=== PATIENT | male | born 1985 | race African-American/Black ===

== ENCOUNTER 2022-04-14 22:08 | Emergency (ER) | payer OTHER ==
[2022-04-14 22:13] VITALS: BP 138/71; PULSE 83; RESP 19; TEMP 98.6; BMI 26.7
[2022-04-14] MEDS ORDERED: DIPHTH,PERTUSS(ACELL),TET 0.5 ML DISP.SYRIN IM ONE ×2 (22:28→22:49)
[2022-04-14] MEDS ORDERED: LIDOCAINE 2%/EPINEPHRINE 1:100000 (50 ML MD VIAL) INF ONE (22:54)
[2022-04-14] MEDS ORDERED: LIDOCAINE HCL 1%, 10 MG/ML (50 mL VIAL) INF ONE (22:58)
[2022-04-14] MEDS ORDERED: LIDOCAINE HCL 1%, 10 MG/ML (20ML VIAL) ONE (22:58)
== END 2022-04-14 23:50 | disposition home or self-care (01) ==
LOC: JER 22:08
PROC: 0HQLXZZ Repair Left Lower Leg Skin, External Approach (ICD-10-PCS; principal; 2022-04-14)
PROC: 3E0234Z Introduction of Serum, Toxoid and Vaccine into Muscle, Percutaneous Approach (ICD-10-PCS; 2022-04-14)
DX: S81.812A Laceration without foreign body, left lower leg, initial encounter (principal); S50.12XA Contusion of left forearm, initial encounter; V28.0XXA Motorcycle driver injured in noncollision transport accident in nontraffic accident, initial encounter
CPT/HCPCS: 73090-TC-LT-FY; 73590-TC-LT-FY; 90715; 99284-25

== ENCOUNTER 2022-04-27 18:13 | Emergency (ER) | payer OTHER ==
[2022-04-27 18:40] VITALS: BP 130/66; PULSE 63; RESP 16; TEMP 98.6; BMI 26.2
== END 2022-04-27 18:51 | disposition home or self-care (01) ==
LOC: JERFT 18:13
DX: Z48.02 Encounter for removal of sutures (principal)
CPT/HCPCS: 99281-25